=== PATIENT | female | born 1995 | race Caucasian/White ===

== ENCOUNTER 2017-03-19 20:40 | Emergency (ER) | payer SELFPAY ==
[~2017-03-19 20:40] MED LIST: Lidocaine 1% 20 ML MDV ONE
[2017-03-19] MEDS ORDERED: Promethazine HCl 25 MG/ML VIAL ONE (21:18)
[2017-03-19 21:23] LABS: Pregnancy Test - Urine (BHCG) Negative (Negative); Pregu Control Bar Appear? YES (CONTROL BAR); Specific Gravity 1.032 (1.002-1.036)
[2017-03-19 21:24] LABS: Clarity Slightly Cloudy (Clear); Leukocyte Negative (Negative); Nitrite Negative (Negative); Pregu Control Background? CLEAR/WHITE (CLR/WHITE); Protein, Urine (Dipstick) Trace mg/dL (Neg-Trace); Specific Gravity, Urine 1.032 (1.002-1.036)
[2017-03-19 21:25] LABS: Bacteria/HPF 3+ HPF (None Seen); Bilirubin Negative (Negative); Blood, Urine Trace (Negative); Glucose, Urine (Dipstick) Negative (Negative); Renal Epithelial 0-3 HPF (0-3); Squamous Epithelial 21-50 HPF (0-3); Transitional Epithelial 0-3 HPF (0-3); Urobilinogen 0.2 mg/dL (0.2-1.0); Yeast-All Forms Rare HPF (None Seen)
[2017-03-19 21:26] LABS: Crystals/HPF RARE AMORPH URATES HPF (Negative)
[2017-03-19] MEDS ORDERED: cefTRIAXone\\ROCEPHIN 1 GM VIAL ONE (21:47)
== END 2017-03-19 22:20 | disposition home or self-care (01) ==
LOC: MADERS 20:40
DX: N39.0 Urinary tract infection, site not specified (principal)
CPT/HCPCS: 81003; 81015; 81025; 87086; 96372; J0696; J2001; J2550

== ENCOUNTER 2017-05-03 14:58 | Emergency (ER) | payer SELFPAY | END 2017-05-03 15:37 | disposition home or self-care (01) | LOC: MADERS 14:58 | DX: H60.93 Unspecified otitis externa, bilateral (principal) | CPT/HCPCS: 99282 ==

== ENCOUNTER 2017-05-05 10:42 | Emergency (ER) | payer SELFPAY ==
[2017-05-05] MEDS ORDERED: Ibuprofen 800 MG TAB ONE (11:18)
[2017-05-05] MEDS ORDERED: cefTRIAXone\\ROCEPHIN 1 GM VIAL ONE (11:18)
[2017-05-05] MEDS ORDERED: Lidocaine 1% 20 ML MDV ONE (11:53)
== END 2017-05-05 11:45 | disposition home or self-care (01) ==
LOC: MADERS 10:42
DX: H66.92 Otitis media, unspecified, left ear (principal); H62.42 Otitis externa in other diseases classified elsewhere, left ear
CPT/HCPCS: 96372; J0696; J2001